=== PATIENT | female | born 1975 | race Two or more races ===

== ENCOUNTER 2017-06-23 09:13 | Emergency (ER) | payer BC ==
[~2017-06-23] VITALS: Ht 167.6 cm; Wt 63.0 kg
[2017-06-23 09:17] VITALS: BP 104/71
== END 2017-06-23 11:25 | disposition home or self-care (01) ==
LOC: ER 09:14
DX: S62.394A Other fracture of fourth metacarpal bone, right hand, initial encounter for closed fracture (principal); S62.656A Nondisplaced fracture of middle phalanx of right little finger, initial encounter for closed fracture; Z85.3 Personal history of malignant neoplasm of breast; W19.XXXA Unspecified fall, initial encounter; Y93.89 Activity, other specified; Y92.89 Other specified places as the place of occurrence of the external cause; Y99.9 Unspecified external cause status
CPT/HCPCS: 29125; 73130; 99284; A4565

== ENCOUNTER 2017-06-28 10:02 | Outpatient (CLI) | payer BC ==
[2017-06-28 10:04] VITALS: BP 117/80
== END 2017-06-28 10:45 | disposition home or self-care (01) ==
LOC: ORTHO 10:02
PROVIDERS: ATTEND Nurse Practitioner Family
DX: S62.354A Nondisplaced fracture of shaft of fourth metacarpal bone, right hand, initial encounter for closed fracture (principal); S62.609A Fracture of unspecified phalanx of unspecified finger, initial encounter for closed fracture; Z85.3 Personal history of malignant neoplasm of breast; X58.XXXA Exposure to other specified factors, initial encounter; Y93.01 Activity, walking, marching and hiking; Y92.89 Other specified places as the place of occurrence of the external cause; Y99.8 Other external cause status
CPT/HCPCS: 29125; 73130; 99213

== ENCOUNTER 2017-07-18 09:59 | Outpatient (CLI) | payer BC ==
[2017-07-18 09:58] VITALS: BP 96/67
== END 2017-07-18 10:35 | disposition home or self-care (01) ==
LOC: ORTHO 09:59
PROVIDERS: ATTEND Nurse Practitioner Family
DX: S62.354 Nondisplaced fracture of shaft of fourth metacarpal bone, right hand (principal); S62.609D Fracture of unspecified phalanx of unspecified finger, subsequent encounter for fracture with routine healing
CPT/HCPCS: 29125; 73130; 99213

== ENCOUNTER 2017-08-08 08:53 | Outpatient (CLI) | payer BC | END 2017-08-08 09:49 | disposition home or self-care (01) | LOC: ORTHO 08:53 | PROVIDERS: ATTEND Nurse Practitioner Family | DX: S62.354 Nondisplaced fracture of shaft of fourth metacarpal bone, right hand (principal); S62.626D Displaced fracture of middle phalanx of right little finger, subsequent encounter for fracture with routine healing; Z85.3 Personal history of malignant neoplasm of breast; Z92.21 Personal history of antineoplastic chemotherapy; W01.0XXD Fall on same level from slipping, tripping and stumbling without subsequent striking against object, subsequent encounter | CPT/HCPCS: 29125; 73130; 99213 ==

== ENCOUNTER 2017-08-29 09:07 | Outpatient (CLI) | payer BC ==
[2017-08-29 09:11] VITALS: BP 105/77
== END 2017-08-29 09:52 | disposition home or self-care (01) ==
LOC: ORTHO 09:07
PROVIDERS: ATTEND Nurse Practitioner Family
DX: S62.354D Nondisplaced fracture of shaft of fourth metacarpal bone, right hand, subsequent encounter for fracture with routine healing (principal); S62.609D Fracture of unspecified phalanx of unspecified finger, subsequent encounter for fracture with routine healing; Z85.3 Personal history of malignant neoplasm of breast; Z92.21 Personal history of antineoplastic chemotherapy; W01.0XXD Fall on same level from slipping, tripping and stumbling without subsequent striking against object, subsequent encounter
CPT/HCPCS: 73130; 99213

== ENCOUNTER 2017-09-26 09:29 | Outpatient (CLI) | payer BC | END 2017-09-26 09:52 | disposition home or self-care (01) | LOC: ORTHO 09:29 | PROVIDERS: ATTEND Nurse Practitioner Family | DX: S62.354K Nondisplaced fracture of shaft of fourth metacarpal bone, right hand, subsequent encounter for fracture with nonunion (principal); S62.609D Fracture of unspecified phalanx of unspecified finger, subsequent encounter for fracture with routine healing; S62.646D Nondisplaced fracture of proximal phalanx of right little finger, subsequent encounter for fracture with routine healing; Z85.3 Personal history of malignant neoplasm of breast; X58.XXXD Exposure to other specified factors, subsequent encounter | CPT/HCPCS: 73130 ==

== ENCOUNTER 2017-11-13 09:17 | Outpatient (CLI) | payer BC ==
[2017-11-13 09:15] VITALS: BP 119/79
== END 2017-11-13 09:46 | disposition home or self-care (01) ==
LOC: ORTHO 09:17
PROVIDERS: ATTEND Nurse Practitioner Family
DX: S62.354D Nondisplaced fracture of shaft of fourth metacarpal bone, right hand, subsequent encounter for fracture with routine healing (principal); S62.326D Displaced fracture of shaft of fifth metacarpal bone, right hand, subsequent encounter for fracture with routine healing; W01.0XXD Fall on same level from slipping, tripping and stumbling without subsequent striking against object, subsequent encounter; Z85.3 Personal history of malignant neoplasm of breast
CPT/HCPCS: 73130; 99213